=== PATIENT | male | born 2000 | race Caucasian/White ===

== ENCOUNTER 2018-02-27 23:20 | Inpatient (IN) ==
[2018-02-27] MEDS ORDERED: ceFAZolin 2 GM Premix Inj 2 GM/50 ML PIGGYBACK IV.SIG ONE (23:33)
[2018-02-27] MEDS ORDERED: fentaNYL Citrate Inj 100 MCG/2 ML Ampul ONE (23:35)
[2018-02-28] LABS: Baso # (Auto) 0.1 th/mm3 (0.0-0.2); Baso % (Auto) 0.5 % (0.0-2.0); Eos # (Auto) 0.2 th/mm3 (0.0-0.4); Eos % (Auto) 2.2 % (0.0-4.0); Hematocrit 44.6 % (39.0-51.0); Hemoglobin 15.1 gm/dL (13.0-17.0); Lymph # (Auto) 3.7 th/mm3 (1.0-4.8); Lymph % (Auto) 34.9 % (9.0-44.0); Mean Corpuscular HGB Conc 33.9 % (32.0-36.0); Mean Corpuscular Hemoglobin 31.2 pg (27.0-34.0); Mean Corpuscular Volume 92.2 fL (80.0-100.0); Mean Platelet Volume 7.9 fL (7.0-11.0); Mono # (Auto) 0.9 th/mm3 (0.0-0.9); Mono % (Auto) 8.6 % (0.0-8.0); Neut # (Auto) 5.8 th/mm3 (1.8-7.7); Neut % (Auto) 53.8 % (16.0-70.0); Platelet Count 300 th/mm3 (150-450); Red Blood Count 4.83 mil/mm3 (4.50-5.90); White Blood Count 10.7 th/mm3 (4.0-11.0)
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
[2018-02-28 00:11] LABS: Activated Partial Thrombo Time 22.6 sec (24.3-30.1); INR 1.2 Ratio
[2018-02-28] MEDS ORDERED: fentaNYL Citrate Inj 100 MCG/2 ML Ampul IV.PUSH ONE (00:13)
[2018-02-28] MEDS ORDERED: Diphtheria/Tetanus/Pertussis Vaccine Inj 0.5 ML Syringe IM ONE (00:13)
[2018-02-28] MEDS: fentaNYL Citrate Inj 100 MCG/2 ML Ampul IV.PUSH PRN ×2 (00:31→01:29)
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
[2018-02-28] MEDS ORDERED: Post-op Orders (for Pharmacy) OTHER STA ×2 (00:48→09:56)
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
[2018-02-28] MEDS ORDERED: Morphine Inj 4 MG/ML Vial IV.PUSH PRN ×2 (02:06→09:56)
[2018-02-28] MEDS ORDERED: Chlorhexidine Gluconate 2% 1 Pack (2 Cloths) TOPICAL SCH (02:30)
[2018-02-28] MEDS ORDERED: Metoprolol Tartrate 25 MG Tablet PO SCH (02:30)
[2018-02-28] MEDS ORDERED: Sodium Chlor 0.9% Inj 500 ML IV.SIG SCH (03:00)
[2018-02-28] MEDS: Morphine Inj 4 MG/ML Vial IV.PUSH PRN ×3 (05:39→20:15)
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
[2018-02-28] MEDS ORDERED: Tranexamic Acid Inj 1,000 MG/10 ML Ampul ONE (08:37)
[2018-02-28] MEDS ORDERED: ceFAZolin 2 GM Premix Inj 2 GM/50 ML PIGGYBACK IV.SIG ONE (08:50)
[2018-02-28] MEDS ORDERED: Vancomycin Inj 1 GM/200 ML PIGGYBACK IV.SIG ONE (08:52)
[2018-02-28] MEDS ORDERED: Senna/Docusate Sodium 8.6/50 MG Tablet PO SCH (09:00)
[2018-02-28] MEDS ORDERED: Tranexamic Acid Inj 1,000 MG in Sodium Chlor 0.9% Inj 100 ML IV.SIG SCH ×2 (09:00→09:15)
[2018-02-28] MEDS ORDERED: Enoxaparin Inj 30 MG/0.3 ML Syringe SQ SCH (09:00)
--- NOTE | 2018-02-28 09:53 | P.OP ---
Date of procedure: 02/28/18 Procedure: Left femoral shaft treatment of fracture with intramedullary nail Anesthesia: YEMIA Surgeon: Daniel Ochoa MD Sheep Shearer: NOE Fields The surgical procedure was assisted by my Advanced Registered Nurse Practitioner. My GARAGE WORKER presence was necessary throughout this case for the manipulation and positioning of the surgical extremity. My GARAGE WORKER was assisting me throughout the duration of this procedure. The skill set of an Advance Registered Nurse Practitioner was medically necessary to complete this procedure. During the surgical case, the rn surgical was working at the back table and the Advance Registered Nurse Practitioner was directly assisting me. Operation and Findings: Estimated blood loss: 350 cc Implants: Synthes antegrade femoral nail, size: 13 x 400 The patient received intravenous vancomycin and Ancef. After the appropriate anesthesia was administered, and the patient was transferred to the fracture table. The fracture was partially reduced but could not be anatomically reduced. The femur was prepped and draped in usual sterile fashion. We made incision around the greater trochanter posteriorly and placed a Bennett elevator underneath 2 rotate the femur appropriately. We made incision just proximal to the tip of the greater trochanter. We dissected down through the deep fascia. We used a threaded guidewire at the piriformis starting point which was placed down to the metaphyseal region on both the AP and lateral views. We reamed proximally. We made small incision at the fracture site. Placed a Bennett anteriorly which reduce the fracture very nicely with downward pressure. We then placed a ball- tipped guidewire into the femoral shaft down to the knee. We sequentially reamed up to a 14.5 mm reamer. We got good cortical chatter. We then placed the 13 mm nail into the appropriate position. We secured the nail proximally with 2 transverse screws with excellent purchase. We confirmed that the fracture was in good position on the AP and lateral views as far as length and rotation and angulation were concerned. We then locked the nail and distally using perfect chicken ranch technique with 2 screws with good to excellent purchase. We took final fluoroscopic imaging. The wounds were thoroughly irrigated. We closed deep tissue with 0 Vicryl followed by 2-0 Vicryl for skin and rosey. The leg was dressed. The postoperative plan is to start toe-touch weightbearing. Additionally, we will initiate postoperative antibiotics for 24 hours along with DVT prophylaxis consisting of early mobilization, SCDs, compression stockings, and Lovenox followed by aspirin.
[2018-02-28] MEDS ORDERED: Bisacodyl 10 MG Supp RECTAL PRN (09:56)
[2018-02-28] MEDS ORDERED: Aluminum/Magnesium/Simethacone Susp 30 ML UDC PO PRN (09:56)
[2018-02-28] MEDS ORDERED: Vancomycin Inj 1,000 MG in Sodium Chlor 0.9% Inj 250 ML IV.SIG SCH (10:00)
[2018-02-28] MEDS ORDERED: ceFAZolin 2 GM/NS 100 ML IV; Q8H IV.SIG SCH ×4 (10:00)
[2018-02-28] MEDS ORDERED: *Meperidine Inj 25 MG/ML Vial PERIprocedural Use ONLY ONE (10:14)
[2018-02-28] MEDS ORDERED: fentaNYL Citrate Inj 100 MCG/2 ML Ampul ONE (10:18)
[2018-02-28] MEDS ORDERED: Glycopyrrolate Inj 1 MG/5 ML Syringe IV.PUSH ONE (12:00)
[2018-02-28] MEDS ORDERED: Phenylephrine/NS 1000 MCG/10ML Syringe IV.PUSH ONE (12:00)
[2018-02-28] MEDS ORDERED: Lidocaine PF 1% Inj 5 ML Syringe INFILTRATN ONE (12:00)
[2018-02-28] MEDS ORDERED: Neostigmine Inj 5 MG/5 ML Syringe IV.PUSH ONE (12:00)
[2018-02-28 13:12] LABS: Hematocrit 37.1 % (39.0-51.0); Hemoglobin 12.6 gm/dL (13.0-17.0)
--- NOTE | 2018-02-28 15:02 | XR ---
EXAM DATE: 02/28/2018 1:36 PM EDT AGE/SEX: 17 years / Male INDICATIONS: Left femur leora. CLINICAL DATA: This is the patient's initial encounter. Patient reports that signs and symptoms have been present for 2 days and indicates a pain score of Nonresponsive. MEDICAL/SURGICAL HISTORY: None. None. COMPARISON: No prior exams available for comparison. FINDINGS: There is leora fixation of the left femur with mild residual displacement. No dislocation. CONCLUSION: Multiple spot films reveal leora fixation of the left femur. Electronically signed by: Aleksandr Burk MD 02/28/2018 3:01 PM EDT
[2018-02-28] MEDS: Senna/Docusate Sodium 8.6/50 MG Tablet PO SCH (20:16)
[2018-02-28] MEDS: Multivitamin/Minerals Therapeutic Tablet PO SCH (20:16)
[2018-02-28] MEDS ORDERED: Zolpidem Tartrate 5 MG Tablet PO PRN (21:00)
[2018-03-01] MEDS: Morphine Inj 4 MG/ML Vial IV.PUSH PRN ×2 (00:56→11:11)
[2018-03-01 04:14] LABS: Baso % (Auto) 0.1 % (0.0-2.0); Eos # (Auto) 0.1 th/mm3 (0.0-0.4); Eos % (Auto) 0.5 % (0.0-4.0); Hematocrit 37.1 % (39.0-51.0); Hemoglobin 12.8 gm/dL (13.0-17.0); Lymph % (Auto) 16.5 % (9.0-44.0); Mean Corpuscular HGB Conc 34.4 % (32.0-36.0); Mean Corpuscular Hemoglobin 32.1 pg (27.0-34.0); Mean Corpuscular Volume 93.3 fL (80.0-100.0); Mean Platelet Volume 7.9 fL (7.0-11.0); Mono # (Auto) 1.3 th/mm3 (0.0-0.9); Mono % (Auto) 10.7 % (0.0-8.0); Neut # (Auto) 8.7 th/mm3 (1.8-7.7); Neut % (Auto) 72.2 % (16.0-70.0); Platelet Count 214 th/mm3 (150-450); Red Blood Count 3.98 mil/mm3 (4.50-5.90); White Blood Count 12.1 th/mm3 (4.0-11.0)
[2018-03-01 04:32] LABS: Anion Gap 3 meq/L (5-15); Blood Urea Nitrogen 7 mg/dL (7-18); Calcium 8.9 mg/dL (8.5-10.1); Carbon Dioxide 33.9 meq/L (21.0-32.0); Chloride 105 meq/L (98-107); Glomerular Filtration Rate Greater Than 89 mL/min (>89); Glucose,Random 102 mg/dL (74-106); Potassium 4.2 meq/L (3.5-5.1); Sodium 142 meq/L (136-145)
[2018-03-01] MEDS: Senna/Docusate Sodium 8.6/50 MG Tablet PO SCH ×2 (08:09→20:07)
[2018-03-01] MEDS: Multivitamin/Minerals Therapeutic Tablet PO SCH ×2 (08:09→20:07)
--- NOTE | 2018-03-01 08:40 | P.PNOP ---
Subjective Interval history: Patient is resting in bed with c/o soreness and moderate pain. Patient reports pain is better than before surgery. Physical Exam Vital signs: Vital Signs 02/28/18 10:10 02/28/18 10:15 02/28/18 10:30 Temperature 97.8 F Pulse Rate 77 76 81 Respiratory Rate 20 20 20 Blood Pressure 127/65 129/65 120/59 L Pulse Oximetry 100 100 100 02/28/18 10:45 02/28/18 10:55 02/28/18 12:00 Temperature 98.7 F 97.9 F Pulse Rate 84 70 Respiratory Rate 20 16 Blood Pressure 121/57 L 120/67 Pulse Oximetry 100 100 99 02/28/18 12:15 02/28/18 16:00 02/28/18 18:03 Temperature 98.8 F Pulse Rate 86 Respiratory Rate 18 Blood Pressure 127/59 L Pulse Oximetry 100 98 99 02/28/18 20:00 03/01/18 00:00 03/01/18 04:00 Temperature 97.9 F 98.0 F 98.2 F Pulse Rate 95 H 89 72 Respiratory Rate 18 18 18 Blood Pressure 130/66 137/60 129/59 L Pulse Oximetry 98 99 100 Intake & Output 02/28/18 03/01/18 03/01/18 18:59 06:59 18:59 Intake Total 1600 / 1600 580 / 580 Output Total 350 / 350 600 / 600 Balance 1250 / 1250 -20 / -20 Intake: IV 1450 / 1450 200 / 200 LR 1000 mL Inj 1,000 ML @ 100 1000 / 1000 mls/hr IV.CONT .Q10H [facility] Rx#: [id number] Cyklokapron Inj 1,000 MG In NS 100 / 100 Inj 100 ML @ 200 mls/hr IV.SIG ONCE [facility]Y Rx#:[id number] Vancomycin Inj 1 gm In 200 ml @ 200 / 200 200 mls/hr IV.SIG ONCE ONE Rx# :[id number] Ancef 2 GM Premix Inj 2 gm In 50 / 50 50 ml @ 100 mls/hr IV.SIG ONCE ONE Rx#:[id number] Ancef Inj 1,000 MG In NS Inj 100 / 100 200 / 200 100 ML @ 200 mls/hr IV.SIG Q6H [facility] Rx#:[id number] Oral 380 / 380 Anesthesia Amount 150 / 150 Output: Urine 600 / 600 Estimated Blood Loss 350 / 350 Other: Date of Last Bowel Movement 02/27/18 Narrative: Dressings are C/D/I. EHL/TA/G intact. 2+ pedal pulse. Calf is soft and nontender. + SILT distally. Results - Labs CBC & Chem 7: 03/01/18 03:44 03/01/18 03:44 Laboratory Results - last 24 hr 02/28/18 03/01/18 03/01/18 12:25 03:44 03:44 WBC 12.1 H RBC 3.98 L Hgb 12.6 L D 12.8 L Hct 37.1 L 37.1 L MCV 93.3 MCH 32.1 MCHC 34.4 RDW 13.0 Plt Count 214 MPV 7.9 Neut % (Auto) 72.2 H Lymph % (Auto) 16.5 [place] % (Auto) 10.7 H Eos % (Auto) 0.5 Baso % (Auto) 0.1 Neut # (Auto) 8.7 H Lymph # (Auto) 2.0 [place] # (Auto) 1.3 H Eos # (Auto) 0.1 Baso # (Auto) 0.0 WBC Differential . Differential Comment Auto diff final Sodium 142 Potassium 4.2 Chloride 105 Carbon Dioxide 33.9 H Anion Gap 3 L BUN 7 Creatinine 1.02 Estimated GFR Greater than 89 Random Glucose 102 Calcium 8.9 - Imaging Impressions Femur X-Ray 02/28/18 00:00 CONCLUSION: Multiple spot films reveal leora fixation of the left femur. Assessment and Plan - Assessment and Plan POD #1: Left femoral shaft fracture with IMN 1. TTWB LLE 2. Lovenox followed by ASA for DVT prophylaxis 3. Ice to the LLE PRN 4. Stable per ortho for discharge once medically cleared. 5. F/U in the office in 1-[address] Ochoa or NOE Frazier
[2018-03-01] MEDS: Enoxaparin Inj 40 MG/0.4 ML Syringe SQ SCH (11:11)
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
[2018-03-01] MEDS ORDERED: HYDROmorphone PF Inj 2 MG/ML Vial IV.PUSH ONE (22:00)
[2018-03-01] MEDS: oxyCODONE/Acetaminophen 10/325 Tablet PO PRN (23:00)
[2018-03-02] MEDS: oxyCODONE/Acetaminophen 10/325 Tablet PO PRN ×5 (02:58→19:54)
[2018-03-02 06:18] LABS: Hematocrit 33.9 % (39.0-51.0); Hemoglobin 11.7 gm/dL (13.0-17.0)
--- NOTE | 2018-03-02 07:53 | P.DCO ---
- Physical Therapy Order: Evaluate and treat, Improve ambulation, Strength and gait training - Home Health Nursing Order: Medical education, Signs/symptoms of disease process, Medication education-adverse effect, Nursing assessment with vital signs - Certification I have seen patient Jamaal Mccoy on 03/02/18. My clinical findings support the need for the requested home health care services because: Limited mobility due to disease progression, Deconditioned with increased weakness, Limited ability to care for self, High risk of falls, Infection with risk of complications I certify that my clinical findings support that this patient is homebound because: Impaired cognitive ability/safety, Unsteady gait/balance, Unsafe to leave home unassisted, Non-ambulatory: confined to bed or chair, Unable to use public transportation
[2018-03-02] MEDS: Multivitamin/Minerals Therapeutic Tablet PO SCH ×2 (08:08→19:59)
[2018-03-02] MEDS: Senna/Docusate Sodium 8.6/50 MG Tablet PO SCH ×2 (08:08→20:00)
[2018-03-02] MEDS: Enoxaparin Inj 40 MG/0.4 ML Syringe SQ SCH (09:57)
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
--- NOTE | 2018-03-02 13:50 | P.PNOP ---
Subjective Interval history: The patient is out of bed in his chair with family at bedside. The patient is reporting severe pain to the left lower leg after transitioning from the bed to the chair. The patient states the change and pain medication last night was beneficial and he was able to sleep. The patient's family is concerned about the patient's discharge home today and is requesting that the patient stay additional nights until his pain is managed. They will discuss this further with the critical care team. Physical Exam Vital signs: Vital Signs 03/01/18 16:00 03/01/18 20:00 03/02/18 00:00 Temperature 98.3 F 98.2 F 97.6 F Pulse Rate 88 116 H 85 Respiratory Rate 16 20 20 Blood Pressure 127/65 131/73 123/58 L Pulse Oximetry 97 99 97 03/02/18 08:00 03/02/18 12:00 Temperature 97.8 F 97.4 F L Pulse Rate 95 H 141 H Respiratory Rate 18 20 Blood Pressure 117/65 106/58 L Pulse Oximetry 97 97 Intake & Output 03/01/18 03/02/18 03/02/18 18:59 06:59 18:59 Intake Total 0 / 0 700 / 700 Balance 0 / 0 700 / 700 Weight 77.1 kg Intake: Oral 700 / 700 Other 0 / 0 Other: Other Intake Source Saline Solution # Voids 2 Date of Last Bowel Movement 02/27/18 02/27/18 02/27/18 Narrative: The patient's dressings are clean, dry, and intact. EHL/TA/G are intact. 2+ pedal pulse. The patient's calf is soft and nontender. Sensation is intact to light touch distally. The patient has some abrasions to his knees. There is no redness or signs of infection. The patient does have some swelling about the left lower leg. Results - Labs CBC & Chem 7: 03/02/18 05:13 03/01/18 03:44 Laboratory Results - last 24 hr 03/02/18 05:13 Hgb 11.7 L Hct 33.9 L - Imaging Impressions Chest X-Ray 02/27/18 23:39 CONCLUSION: The lungs are clear. Pelvis X-Ray 02/27/18 23:39 CONCLUSION: The bony pelvic ring is grossly intact. Femur X-Ray 02/28/18 00:00 CONCLUSION: Multiple spot films reveal leora fixation of the left femur. Assessment and Plan - Assessment and Plan POD #2: Left femoral shaft fracture with IMN 1. TTWB LLE 2. Lovenox followed by ASA for DVT prophylaxis 3. Ice to the LLE PRN 4. Stable per ortho for discharge once medically cleared. 5. F/U in the office in 1-[address] Ochoa or NOE Frazier 6. Hospital pain medication was changed from hydrocodone to oxycodone which seems to provide better pain management.
[2018-03-03] MEDS: oxyCODONE/Acetaminophen 10/325 Tablet PO PRN ×3 (06:46→19:46)
[2018-03-03] MEDS: Multivitamin/Minerals Therapeutic Tablet PO SCH ×2 (09:19→22:27)
[2018-03-03] MEDS: Enoxaparin Inj 40 MG/0.4 ML Syringe SQ SCH (09:19)
[2018-03-03] MEDS: Senna/Docusate Sodium 8.6/50 MG Tablet PO SCH ×2 (09:19→22:26)
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
--- NOTE | 2018-03-03 18:25 | P.PNOP ---
Subjective Interval history: The patient is resting in bed in no acute distress. The patient states his pain is slowly improving. The patient is taking less pain medication today than he did yesterday. The patient's mother had some concerns regarding when the patient might be discharged. Physical Exam Vital signs: Vital Signs 03/02/18 20:00 03/03/18 00:00 03/03/18 07:16 Temperature 98.3 F 98.3 F Pulse Rate 109 H 99 H Respiratory Rate 20 18 18 Blood Pressure 128/60 126/61 Pulse Oximetry 100 98 03/03/18 08:00 03/03/18 12:00 03/03/18 16:00 Temperature 98.2 F 97.4 F L 98.2 F Pulse Rate 83 114 H 102 H Respiratory Rate 18 Blood Pressure 124/59 L 133/65 126/58 L Pulse Oximetry 98 97 100 Intake & Output 03/02/18 03/03/18 03/03/18 18:59 06:59 18:59 Intake Total 480 / 480 Output Total 1200 / 1200 Balance -1200 / -1200 480 / 480 Intake: Oral 480 / 480 Output: Urine 1200 / 1200 Other: # Voids 3 Date of Last Bowel Movement 02/27/18 02/27/18 02/27/18 # Bowel Movements 1 1 Narrative: The patient's dressing is clean, dry, and intact. EHL/TA/G are intact. 2+ pedal pulse. The patient's calf is soft and nontender. Sensation is intact to light touch distally. Results - Labs CBC & Chem 7: 03/02/18 05:13 03/01/18 03:44 Assessment and Plan - Assessment and Plan POD #3: Left femoral shaft fracture with IMN 1. TTWB LLE 2. Lovenox followed by ASA for DVT prophylaxis 3. Ice to the LLE PRN 4. Stable per ortho for discharge once medically cleared. Orthopedics is signing off. 5. F/U in the office in 1-[address] Ochoa or NOE Frazier 6. The patient's charge nurse was informed of the patient's family's concerns about discharge. The patient's concerns were addressed by the charge nurse today. DME's should be delivered tomorrow with anticipatory discharge.
[2018-03-04] MEDS: oxyCODONE/Acetaminophen 10/325 Tablet PO PRN ×6 (00:45→22:43)
[2018-03-04] MEDS: Senna/Docusate Sodium 8.6/50 MG Tablet PO SCH ×2 (09:11→20:24)
[2018-03-04] MEDS: Multivitamin/Minerals Therapeutic Tablet PO SCH ×2 (09:11→20:24)
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
[2018-03-04] MEDS ORDERED: Phenylephrine/NS 1000 MCG/10ML Syringe IV.PUSH ONE (12:00)
[2018-03-04] MEDS ORDERED: Neostigmine Inj 5 MG/5 ML Syringe IV.PUSH ONE (12:00)
[2018-03-04] MEDS ORDERED: Glycopyrrolate Inj 1 MG/5 ML Syringe IV.PUSH ONE (12:00)
[2018-03-04] MEDS ORDERED: Lidocaine PF 1% Inj 5 ML Syringe INFILTRATN ONE (12:00)
[2018-03-04] MEDS: Enoxaparin Inj 40 MG/0.4 ML Syringe SQ SCH (12:30)
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
[2018-03-05] MEDS: oxyCODONE/Acetaminophen 10/325 Tablet PO PRN ×4 (02:55→12:31)
[2018-03-05] MEDS: Multivitamin/Minerals Therapeutic Tablet PO SCH (08:26)
[2018-03-05] MEDS: Senna/Docusate Sodium 8.6/50 MG Tablet PO SCH (08:26)
[2018-03-05 08:46] VITALS: BP 124/58
[2018-03-05] MEDS: Enoxaparin Inj 40 MG/0.4 ML Syringe SQ SCH (09:32)
[2018-03-05 12:23] VITALS: PULSE 105; RESP 20; TEMP 97.9; O2SAT 100
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
== END 2018-03-05 12:54 | disposition home health service (06) ==
LOC: NEPE 23:20 → NEDA 02-28 00:24 → N06 02-28 01:45
PROVIDERS: ADMIT Surgery; ATTEND Surgery

== ENCOUNTER 2018-03-19 13:23 | Inpatient (IN) ==
[2018-03-19] MEDS ORDERED: Acetaminophen 325 MG Tablet PO PRN (15:11)
[2018-03-19] MEDS ORDERED: Bisacodyl 10 MG Supp RECTAL PRN (15:11)
[2018-03-19] MEDS ORDERED: Enoxaparin Inj 40 MG/0.4 ML Syringe SQ SCH (15:15)
[2018-03-19] MEDS ORDERED: Naloxone Inj 0.4 MG/ML Vial IV.PUSH PRN (15:18)
[2018-03-19] MEDS ORDERED: Ibuprofen 400 MG Tablet PO PRN (15:18)
[2018-03-19] MEDS ORDERED: Vancomycin Inj 1 GM/200 ML PIGGYBACK IV.SIG ONE (15:21)
[2018-03-19] MEDS ORDERED: Piperacil/Tazo 3.375 GM Premix 50 ML IV.SIG ONE (15:21)
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
[2018-03-19] MEDS: Enoxaparin Inj 40 MG/0.4 ML Syringe SQ SCH (15:39)
[2018-03-19] MEDS: Morphine Inj 4 MG/ML Vial IV.PUSH PRN (15:40)
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
[2018-03-19] MEDS ORDERED: Vancomycin Inj 1,000 MG in Sodium Chlor 0.9% Inj 250 ML IV.SIG ONE (16:00)
[2018-03-19 16:24] LABS: Baso % (Auto) 0.5 % (0.0-2.0); Eos # (Auto) 0.1 th/mm3 (0.0-0.4); Eos % (Auto) 1.4 % (0.0-4.0); Hematocrit 34.6 % (39.0-51.0); Lymph % (Auto) 13.6 % (9.0-44.0); Mean Corpuscular HGB Conc 34.6 % (32.0-36.0); Mean Corpuscular Volume 92.4 fL (80.0-100.0); Mean Platelet Volume 6.8 fL (7.0-11.0); Mono # (Auto) 0.5 th/mm3 (0.0-0.9); Mono % (Auto) 6.5 % (0.0-8.0); Neut # (Auto) 5.9 th/mm3 (1.8-7.7); Platelet Count 417 th/mm3 (150-450); Red Blood Count 3.75 mil/mm3 (4.50-5.90); Red Cell Distribution Width 13.7 % (11.6-17.2); White Blood Count 7.5 th/mm3 (4.0-11.0)
[2018-03-19 17:11] LABS: Anion Gap 8 meq/L (5-15); Blood Urea Nitrogen 12 mg/dL (7-18); Calcium 9.5 mg/dL (8.5-10.1); Carbon Dioxide 28.2 meq/L (21.0-32.0); Chloride 104 meq/L (98-107); Glomerular Filtration Rate Greater Than 89 mL/min (>89); Glucose,Random 83 mg/dL (74-106); Potassium 3.6 meq/L (3.5-5.1); Sodium 140 meq/L (136-145)
[2018-03-19 17:33] LABS: Bilirubin,Urine Negative (Negative); Clarity,Urine Hazy (Clear); Color,Urine Yellow (Yellw/Straw); Glucose,Urine (UA) Negative (Negative); Leukocyte Esterase,Urine Negative (Negative); Mucus,Urine Few /lpf (Occasional); Nitrite,Urine Negative (Negative); Specific Gravity,Urine 1.009 (1.002-1.035)
[2018-03-19] MEDS ORDERED: Vancomycin Consult Pharmacy OTHER PRN (17:53)
[2018-03-19] MEDS ORDERED: Vancomycin Inj 1,000 MG in Sodium Chlor 0.9% Inj 250 ML IV.SIG SCH (21:00)
[2018-03-19] MEDS: Senna/Docusate Sodium 8.6/50 MG Tablet PO SCH (22:32)
[2018-03-20] MEDS: Vancomycin Inj 1,250 MG in Sodium Chlor 0.9% Inj 250 ML IV.SIG SCH ×3 (01:27→17:25)
[2018-03-20] MEDS: Piperacil/Tazo 3.375 GM Premix 50 ML IV.SIG SCH ×2 (03:18→16:43)
[2018-03-20] MEDS: Senna/Docusate Sodium 8.6/50 MG Tablet PO SCH ×2 (08:01→20:47)
[2018-03-20 08:51] LABS: Baso % (Auto) 0.7 % (0.0-2.0); Eos # (Auto) 0.2 th/mm3 (0.0-0.4); Eos % (Auto) 3.1 % (0.0-4.0); Hematocrit 32.4 % (39.0-51.0); Hemoglobin 11.2 gm/dL (13.0-17.0); Lymph # (Auto) 1.4 th/mm3 (1.0-4.8); Lymph % (Auto) 19.8 % (9.0-44.0); Mean Corpuscular HGB Conc 34.5 % (32.0-36.0); Mean Corpuscular Volume 92.6 fL (80.0-100.0); Mean Platelet Volume 6.9 fL (7.0-11.0); Mono # (Auto) 0.6 th/mm3 (0.0-0.9); Mono % (Auto) 8.1 % (0.0-8.0); Neut # (Auto) 4.7 th/mm3 (1.8-7.7); Neut % (Auto) 68.3 % (16.0-70.0); Platelet Count 364 th/mm3 (150-450); Red Cell Distribution Width 13.8 % (11.6-17.2); White Blood Count 6.9 th/mm3 (4.0-11.0)
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
[2018-03-20] MEDS ORDERED: Pharmacy Ordered Lab Info OTHER ONE (15:45)
[2018-03-20] MEDS: Enoxaparin Inj 40 MG/0.4 ML Syringe SQ SCH (16:43)
[2018-03-20] MEDS: Morphine Inj 4 MG/ML Vial IV.PUSH PRN (20:47)
[2018-03-21] MEDS: Vancomycin Inj 1,250 MG in Sodium Chlor 0.9% Inj 250 ML IV.SIG SCH ×2 (00:08→07:51)
[2018-03-21] MEDS: Morphine Inj 4 MG/ML Vial IV.PUSH PRN ×3 (02:10→23:24)
[2018-03-21] MEDS: Piperacil/Tazo 3.375 GM Premix 50 ML IV.SIG SCH (03:46)
[2018-03-21] MEDS: Senna/Docusate Sodium 8.6/50 MG Tablet PO SCH ×2 (08:00→21:17)
[2018-03-21 08:19] LABS: Baso % (Auto) 0.7 % (0.0-2.0); Eos # (Auto) 0.3 th/mm3 (0.0-0.4); Hematocrit 32.6 % (39.0-51.0); Hemoglobin 11.2 gm/dL (13.0-17.0); Lymph # (Auto) 1.5 th/mm3 (1.0-4.8); Lymph % (Auto) 23.9 % (9.0-44.0); Mean Corpuscular HGB Conc 34.2 % (32.0-36.0); Mean Corpuscular Hemoglobin 31.9 pg (27.0-34.0); Mean Corpuscular Volume 93.2 fL (80.0-100.0); Mean Platelet Volume 7.1 fL (7.0-11.0); Mono # (Auto) 0.6 th/mm3 (0.0-0.9); Mono % (Auto) 9.7 % (0.0-8.0); Neut # (Auto) 3.9 th/mm3 (1.8-7.7); Neut % (Auto) 61.7 % (16.0-70.0); Platelet Count 327 th/mm3 (150-450); Red Cell Distribution Width 13.3 % (11.6-17.2); White Blood Count 6.3 th/mm3 (4.0-11.0)
[2018-03-21 08:43] LABS: Anion Gap 8 meq/L (5-15); Blood Urea Nitrogen 11 mg/dL (7-18); Calcium 9.1 mg/dL (8.5-10.1); Carbon Dioxide 26.8 meq/L (21.0-32.0); Chloride 108 meq/L (98-107); Glomerular Filtration Rate Greater Than 89 mL/min (>89); Glucose,Random 83 mg/dL (74-106); Potassium 3.6 meq/L (3.5-5.1); Sodium 143 meq/L (136-145)
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
[2018-03-21] MEDS: Enoxaparin Inj 40 MG/0.4 ML Syringe SQ SCH (17:21)
[2018-03-21] MEDS: Piperacil/Tazo 4.5 GM Premix 4.5 GM/100 ML BAG IV.SIG SCH ×2 (17:22→21:21)
[2018-03-22] MEDS: Piperacil/Tazo 4.5 GM Premix 4.5 GM/100 ML BAG IV.SIG SCH ×4 (04:28→21:40)
[2018-03-22] MEDS: Senna/Docusate Sodium 8.6/50 MG Tablet PO SCH ×2 (08:56→20:42)
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
[2018-03-22] MEDS: Morphine Inj 4 MG/ML Vial IV.PUSH PRN (13:07)
[2018-03-22] MEDS: Enoxaparin Inj 40 MG/0.4 ML Syringe SQ SCH (15:53)
[2018-03-23] MEDS: Piperacil/Tazo 4.5 GM Premix 4.5 GM/100 ML BAG IV.SIG SCH ×3 (04:04→16:59)
[2018-03-23 05:15] LABS: Hematocrit 32.6 % (39.0-51.0); Hemoglobin 11.1 gm/dL (13.0-17.0); Mean Corpuscular HGB Conc 34.2 % (32.0-36.0); Mean Corpuscular Hemoglobin 31.9 pg (27.0-34.0); Mean Corpuscular Volume 93.5 fL (80.0-100.0); Mean Platelet Volume 7.2 fL (7.0-11.0); Platelet Count 300 th/mm3 (150-450); Red Blood Count 3.49 mil/mm3 (4.50-5.90); Red Cell Distribution Width 13.3 % (11.6-17.2); White Blood Count 7.3 th/mm3 (4.0-11.0)
[2018-03-23] MEDS: Senna/Docusate Sodium 8.6/50 MG Tablet PO SCH (08:22)
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
[2018-03-23] MEDS ORDERED: Collagenase Oint 30 GM Tube TOPICAL SCH (14:00)
[2018-03-23] MEDS ORDERED: levoFLOXacin 500 MG Tablet PO SCH (14:00)
--- NOTE | 2018-03-23 14:17 | P.PNWCN ---
Wound Care Nurse Consult Description: Consult for wound management for left scrotal cellulitis per Dr Crocker Communicated with: CANDIDA Ayala Recommendation: Please defer to Dr Rojas orders in place for Santyl daily Additional information: Patient not seen on for scrotal cellulitis as wound has been assessed and addressed by I.D. Please follow physicians order for Santyl daily.
--- NOTE | 2018-03-23 16:59 | P.DCO ---
- Physical Therapy Order: Evaluate and treat, Improve ambulation, Strength and gait training - Home Health Nursing Order: Medical education, Signs/symptoms of disease process, Wound care and dressing changes - Certification I have seen patient Jamaal Mccoy on 03/23/18. My clinical findings support the need for the requested home health care services because: Limited mobility due to disease progression, Deconditioned with increased weakness, High risk of falls I certify that my clinical findings support that this patient is homebound because: Post-op weakness, Unsteady gait/balance, Unable to use public transportation
[2018-03-23] MEDS: Enoxaparin Inj 40 MG/0.4 ML Syringe SQ SCH (17:00)
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
== END 2018-03-23 18:22 | disposition home health service (06) ==
LOC: NEPE 13:23 → NEDA 15:03 → N04 17:46
PROVIDERS: ADMIT Family Medicine; ATTEND Family Medicine